=== PATIENT | female | born 1935 | race Caucasian/White ===

== ENCOUNTER → 2017-01-02 | Outpatient (CLI) | payer OTHER ==
[~2017-01-02] MED LIST: AMLO5TAB2 PO; BP MED; LEVO25TA2; LEVO50TA5 PO
== END ==
LOC: CFH 08:45
PROVIDERS: ATTEND Family Medicine
DX: Z02.9 Encounter for administrative examinations, unspecified (principal)

== ENCOUNTER → 2017-06-07 | Outpatient (CLI) | payer OTHER | END | disposition home or self-care (01) | LOC: CFH 08:38 | PROVIDERS: ATTEND Family Medicine | DX: K21.9 Gastro-esophageal reflux disease without esophagitis (principal) | CPT/HCPCS: 74245 ==

== ENCOUNTER → 2017-12-21 | Outpatient (CLI) | payer OTHER | END | disposition home or self-care (01) | LOC: CFH 10:15 | PROVIDERS: ATTEND Family Medicine | DX: Z12.31 Encounter for screening mammogram for malignant neoplasm of breast (principal) | CPT/HCPCS: 77067 ==

== ENCOUNTER 2018-06-27 07:15 | Observation (INO) | payer OTHER ==
[~2018-06-27] VITALS: Ht 152.4 cm; Wt 75.7 kg
[~2018-06-27 07:15] MED LIST changes: +AMLO-150 PO; -AMLO5TAB2 PO
[2018-06-27] MEDS ORDERED: SODIUM CHLORIDE FLUSH 10ML SYR IVF ONE ×2 (07:30→09:00)
--- NOTE | 2018-06-27 07:51 | NUR ---
PT BIB [facility] C/O EXERTIONAL DYSPNEA X 1 WEEK W/ ASSOCIATED EPIGASTIC PRESSURE. PMH: HTN, HYPOTHYROID, SCIATICA
[2018-06-27 08:04] LABS: BASOPHILS # (AUTO) 0.04 x10^3/uL (0-0.1); BASOPHILS % (AUTO) 1 % (0-1); EOSINOPHILS # (AUTO) 0.09 x10^3/uL (0-0.4); EOSINOPHILS % (AUTO) 2 % (1-7); LYMPHOCYTES # (AUTO) 0.79 x10^3/uL (1-3.4); LYMPHOCYTES % (AUTO) 21 % (22-44); MD NO; MEAN CORPUSCULAR HEMOGLOBIN 26.9 pg (27.0-34.8); MEAN CORPUSCULAR HGB CONC 32.7 g/dL (32.4-35.8); MEAN CORPUSCULAR VOLUME 82.2 fL (80-100); MEAN PLATELET VOLUME 7.8 fL (7.4-10.4); MONOCYTES # (AUTO) 0.28 x10^3/uL (0.2-0.8); MONOCYTES % (AUTO) 7 % (2-9); NEUTROPHILS # (AUTO) 2.57 x10^3/uL (1.8-6.8); NEUTROPHILS % (AUTO) 68 % (42-75); PLATELET COUNT 321 x10^3/uL (130-400); RED CELL DISTRIBUTION WIDTH 14.7 % (9.6-15.2)
[2018-06-27 08:16] LABS: ALANINE AMINOTRANSFERASE 30 U/L (12-78); ALBUMIN 4.1 g/dL (3.4-5.0); ANION GAP 7 mmol/L (5-15); CALCIUM 9.4 mg/dL (8.5-10.1); CHLORIDE 105 mmol/L (98-107); CREATININE 1.05 mg/dL (0.55-1.02)
[2018-06-27 08:21] LABS: ALKALINE PHOSPHATASE 83 U/L (45-117); BILIRUBIN,TOTAL 0.5 mg/dL (0.2-1.0); TROPONIN I < 0.015 ng/mL (0.000-0.045)
[2018-06-27] MEDS ORDERED: ASPI-515 PO (09:08)
[2018-06-27] MEDS ORDERED: LOSA25TA12 PO (09:13)
[2018-06-27] MEDS ORDERED: NITROGLYCERIN 0.4 MG/SPRAY SL PRN (09:30)
[2018-06-27] MEDS ORDERED: ASPIRIN 325 MG TABLET EC PO ONE (09:30)
[2018-06-27] MEDS ORDERED: NITROGLYCERIN 0.4 MG BOTTLE (25 TABS) SL PRN (09:30)
[2018-06-27] MEDS ORDERED: morphine SULFATE 10 MG/ML, 1ML IV PRN (09:30)
[2018-06-27] MEDS ORDERED: NITROGLYCERIN SINGLE TAB 0.4 MG SL PRN (09:30)
[2018-06-27] MEDS ORDERED: ACETAMINOPHEN 650 MG/20.3 ML UDC PO PRN (09:30)
[2018-06-27] MEDS ORDERED: ONDANSETRON 2MG/ML, 2ML IVP PRN (09:30)
[2018-06-27] MEDS ORDERED: MAALOX/HYOSCYAMINE/LIDOCAINE 45 ML BTL PO PRN (09:30)
[2018-06-27 09:52] LABS: THYROID STIMULATING HORMONE 3.01 mIU/L (0.358-3.740)
[2018-06-27 10:00] VITALS: BP 143/70
[2018-06-27] MEDS ORDERED: LOSARTAN MC SCH (10:00)
[2018-06-27] MEDS: LEVOTHYROXINE 50 MCG TABLET PO SCH (13:51)
[2018-06-27] MEDS: FAMOTIDINE 20 MG TABLET PO SCH ×2 (13:51→21:28)
[2018-06-27] MEDS: AMLODIPINE 5 MG TABLET PO SCH (13:51)
[2018-06-27] MEDS: HEPARIN 5,000 UNITS/ML, 1ML SQ SCH ×2 (13:52→21:28)
[2018-06-27 14:09] LABS: TROPONIN I < 0.015 ng/mL (0.000-0.045)
[2018-06-27 14:23] VITALS: BP 149/77
[2018-06-27 19:47] LABS: TROPONIN I < 0.015 ng/mL (0.000-0.045)
[2018-06-27 20:24] VITALS: BP 116/73
[2018-06-27] MEDS ORDERED: SODIUM CHLORIDE FLUSH 10ML SYR IVF SCH (21:00)
[2018-06-27] MEDS: LOSARTAN 50MG TABLET PO SCH (21:28)
[2018-06-27] MEDS: ASPIRIN 325 MG TABLET EC PO SCH (21:28)
[2018-06-27] MEDS ORDERED: ACETAMINOPHEN 325 MG TABLET PO PRN ×2 (21:40→21:41)
[2018-06-27] MEDS ORDERED: ACETAMINOPHEN 325 MG TABLET ONE (21:54)
[2018-06-28] MEDS ORDERED: ACETAMINOPHEN 325 MG TABLET PO PRN (01:41)
[2018-06-28 03:52] VITALS: BP 111/71
[2018-06-28 05:02] LABS: ALBUMIN 3.3 g/dL (3.4-5.0); ANION GAP 6 mmol/L (5-15); BASOPHILS # (AUTO) 0.06 x10^3/uL (0-0.1); BASOPHILS % (AUTO) 2 % (0-1); CALCIUM 8.7 mg/dL (8.5-10.1); CHLORIDE 109 mmol/L (98-107); EOSINOPHILS # (AUTO) 0.12 x10^3/uL (0-0.4); EOSINOPHILS % (AUTO) 3 % (1-7); LYMPHOCYTES # (AUTO) 1.15 x10^3/uL (1-3.4); LYMPHOCYTES % (AUTO) 32 % (22-44); MD NO; MEAN CORPUSCULAR HEMOGLOBIN 27.6 pg (27.0-34.8); MEAN CORPUSCULAR HGB CONC 33.5 g/dL (32.4-35.8); MEAN CORPUSCULAR VOLUME 82.5 fL (80-100); MEAN PLATELET VOLUME 7.9 fL (7.4-10.4); MONOCYTES % (AUTO) 11 % (2-9); NEUTROPHILS # (AUTO) 1.89 x10^3/uL (1.8-6.8); NEUTROPHILS % (AUTO) 52 % (42-75); PLATELET COUNT 268 x10^3/uL (130-400); RED BLOOD COUNT 4.28 x10^6/uL (3.82-5.3); RED CELL DISTRIBUTION WIDTH 14.7 % (9.6-15.2)
[2018-06-28 05:06] LABS: ALANINE AMINOTRANSFERASE 23 U/L (12-78); ALKALINE PHOSPHATASE 70 U/L (45-117); BILIRUBIN,TOTAL 0.5 mg/dL (0.2-1.0); CHOL/HDL RATIO 2.2; CHOLESTEROL, TOTAL 166 mg/dL (140-239); CREATININE 0.87 mg/dL (0.55-1.02); HDL CHOL % 45 % (28-40); HDL CHOLESTEROL (DIRECT) 74 mg/dL (40-60); LDL CHOLESTEROL,CALCULATED 79 mg/dL (54-169); LDL/HDL RATIO 1.1 (0.5-3.0); TOTAL PROTEIN 6.4 g/dL (6.4-8.2); TRIGLYCERIDES 64 mg/dL (50-200); VLDL CHOLESTEROL 13 mg/dL (0-25)
[2018-06-28] MEDS: ASPIRIN 325 MG TABLET EC PO SCH (06:10)
[2018-06-28] MEDS: HEPARIN 5,000 UNITS/ML, 1ML SQ SCH (06:10)
[2018-06-28 08:48] VITALS: BP 107/64
[2018-06-28] MEDS: FAMOTIDINE 20 MG TABLET PO SCH (08:51)
[2018-06-28] MEDS: LEVOTHYROXINE 50 MCG TABLET PO SCH (08:51)
[2018-06-28] MEDS: AMLODIPINE 5 MG TABLET PO SCH (08:51)
[2018-06-28] MEDS: LOSARTAN 50MG TABLET PO SCH (09:15)
[2018-06-28] MEDS ORDERED: PANTOPRAZOLE 20MG TABLET PO SCH (09:30)
[2018-06-28] MEDS ORDERED: SUCR1ORA5 PO (09:31)
[2018-06-28] MEDS ORDERED: PANT20TA3 PO (09:31)
[2018-06-28] MEDS ORDERED: SUCRALFATE 1 GM/10 ML UDC PO SCH (11:00)
== END 2018-06-28 11:09 | disposition home or self-care (01) ==
LOC: ED 08:37 → INTOOBSV 08:40 → EDIP 08:40 → 5SO 09:45 → DCLOUNGE 06-28 10:50
PROVIDERS: ADMIT Hospitalist; ATTEND Hospitalist
DX: R10.13 Epigastric pain (principal); K21.9 Gastro-esophageal reflux disease without esophagitis; K80.20 Calculus of gallbladder without cholecystitis without obstruction; E03.9 Hypothyroidism, unspecified; F45.21 Hypochondriasis; I10 Essential (primary) hypertension; K82.8 Other specified diseases of gallbladder; Z82.49 Family history of ischemic heart disease and other diseases of the circulatory system; Z85.828 Personal history of other malignant neoplasm of skin; Z90.710 Acquired absence of both cervix and uterus
CPT/HCPCS: 36415; 71045; 76700; 80053; 80061; 83690; 83735; 83880; 84443; 84484; 85025; 93005; 93306; 96372; 99284; G0378; J1644